=== PATIENT | male | born 1990 | race Caucasian/White ===

== ENCOUNTER 2024-05-02 06:47 | Observation (INO) | payer BC ==
[2024-05-02] MEDS ORDERED: Ondansetron PF 4 MG/2 ML Vial ONE (07:50)
[2024-05-02] MEDS ORDERED: Morphine 4 MG/ML VIAL ONE (07:50)
[2024-05-02] MEDS ORDERED: cefTRIAXone (ROCEPHIN) 2 GM VIAL ONE (07:50)
[2024-05-02] MEDS ORDERED: Sodium Chloride 0.9% 100 ML ONE (07:50)
[2024-05-02] MEDS ORDERED: Lidocaine 1% w/Epinephrine 1:100K 20 ML VIAL ONE (07:50)
[2024-05-02 08:08] LABS: #Basophils 0.06 10x3/uL (0.0-0.2); %Basophils 0.7 % (0.0-1.0); %Eosinophils 1.6 % (0.0-10.0); %Lymphocytes 14.6 % (21.0-51.0); %Monocytes 11.6 % (0.0-10.0); %Neutrophils 71.4 % (42.0-75.0); Hematocrit 45.1 % (42.0-52.0); Hemoglobin 15.2 g/dL (14.0-18.0); Mean Corpuscular HGB CONC 33.7 g/dL (32.0-36.0); Mean Corpuscular Hemoglobin 28.8 pg (27.0-31.0); Mean Corpuscular Volume 85.4 fL (78.0-98.0); Mean Platelet Volume 10.8 fL (7.4-10.4); Platelet Count 265 10x3/uL (130-400); RBC Distribution Width 12.6 % (11.5-14.5); Red Blood Cell (RBC) Count 5.28 mill/uL (4.70-6.10)
[2024-05-02 08:28] LABS: ALT (SGPT) 43 U/L (8-55); AST (SGOT) 32 U/L (5-34); Albumin 4.2 g/dL (3.5-5.0); Alkaline Phosphatase 68 U/L (40-110); Anion Gap 14 mmol/L (10-20); BUN (Urea Nitrogen) 9 mg/dL (8.9-20.6); Bilirubin, Total 0.4 mg/dL (0.2-1.2); Calc. Creatinine Clearance 0 mL/min (70-130); Calcium 9.5 mg/dL (7.8-10.44); Carbon Dioxide 20 mmol/L (22-29); Chloride 104 mmol/L (98-107); Estimated GFR 112; Globulin 3.6 g/dL (2.4-3.5); Glucose 106 mg/dL (70-105); Magnesium 1.8 mg/dL (1.6-2.6); Potassium 3.7 mmol/L (3.5-5.1); Protein, Total 7.8 g/dL (6.0-8.3); Sodium 134 mmol/L (136-145)
[2024-05-02 08:55] LABS: Influenza A by NAA Not Detected (NotDetected); Influenza B by NAA Not Detected (NotDetected); SARS-CoV-2 NAA Rapid Test Not Detected (NotDetected)
[2024-05-02 09:32] LABS: CSF, Glucose 53 mg/dl (40-70); CSF, Protein 94.2 mg/dL (15-40)
[2024-05-02 09:38] LABS: Color Of CSF Supernatant COLORLESS (Colorless); Unspun CSF Color COLORLESS (Colorless)
[2024-05-02 09:39] LABS: Tube # 2
[2024-05-02] MEDS ORDERED: Dexamethasone 10 MG/ML VIAL ONE (09:49)
[2024-05-02] MEDS ORDERED: diphenhydrAMINE 50 MG/ML VIAL ONE (09:50)
[2024-05-02] MEDS ORDERED: Metoclopramide HCl 10 MG (2 mL) VIAL ONE (09:50)
[2024-05-02] MEDS ORDERED: Ondansetron PF 4 MG/2 ML Vial IVP PRN (11:14)
[2024-05-02] MEDS ORDERED: Ondansetron ODT 4 MG TAB PO PRN (11:14)
[2024-05-02 11:21] LABS: CSF Source CSF; Clarity Clear (Clear); Tube # 1
[2024-05-02 11:22] LABS: CSF Source CSF; Clarity Clear (Clear); Tube # 4
[2024-05-02 11:27] LABS: Cell Count Non Hematic 9 %; Lymphocytes 69 %; Segmented Neutrophils 22 %
[2024-05-02 11:29] LABS: Cell Count Non Hematic 17 %; Eosinophils 1 %; Lymphocytes 75 %; Segmented Neutrophils 7 %
[2024-05-02 11:52] VITALS: BMI 34.3
[2024-05-02] MEDS: Vancomycin (BATCH) 2.5 GM in Premix 1 BAG IVPB SCH (12:12)
[2024-05-02] MEDS: Acyclovir Sodium 800 MG in Sodium Chloride 0.9% 250 ML 250 ML IVPB SCH ×2 (12:12→20:03)
[2024-05-02] MEDS: Lactated Ringer's 1,000 ML IV SCH (12:22)
[2024-05-02] MEDS ORDERED: Acyclovir Sodium 500 mg (10 mL) Vial IVPB SCH (14:00)
[2024-05-02 14:58] LABS: HIV (1/2) Antibody/Antigen NONREACTIVE (NonReactive); HIV 1/2 INDEX 0.05 S/CO (<1.00)
[2024-05-02] MEDS: Ibuprofen 200 MG TAB PO PRN (18:00)
[2024-05-02] MEDS: Acetaminophen 325 MG TAB PO PRN (18:00)
[2024-05-02] MEDS: Famotidine 20 MG TAB PO SCH (20:03)
[2024-05-02] MEDS: Famotidine/PF 20 mg/2ml Vial SLOW IVP SCH (20:07)
[2024-05-03 11:21] LABS: #Basophils Less than 0.03 10x3/uL (0.0-0.2); #Eosinphils Less than 0.03 10x3/uL (0.0-0.7); %Basophils 0.2 % (0.0-1.0); %Lymphocytes 10.5 % (21.0-51.0); %Monocytes 4.8 % (0.0-10.0); Hematocrit 43.9 % (42.0-52.0); Hemoglobin 14.7 g/dL (14.0-18.0); Mean Corpuscular HGB CONC 33.5 g/dL (32.0-36.0); Mean Corpuscular Hemoglobin 29.2 pg (27.0-31.0); Mean Corpuscular Volume 87.1 fL (78.0-98.0); Mean Platelet Volume 10.6 fL (7.4-10.4); Platelet Count 253 10x3/uL (130-400); RBC Distribution Width 12.9 % (11.5-14.5); Red Blood Cell (RBC) Count 5.04 mill/uL (4.70-6.10)
[2024-05-03 11:42] LABS: ALT (SGPT) 32 U/L (8-55); AST (SGOT) 19 U/L (5-34); Albumin 3.7 g/dL (3.5-5.0); Alkaline Phosphatase 58 U/L (40-110); Anion Gap 12 mmol/L (10-20); BUN (Urea Nitrogen) 7 mg/dL (8.9-20.6); Bilirubin, Total 0.3 mg/dL (0.2-1.2); Calc. Creatinine Clearance 206 mL/min (70-130); Calcium 9.3 mg/dL (7.8-10.44); Carbon Dioxide 23 mmol/L (22-29); Chloride 109 mmol/L (98-107); Estimated GFR 118; Globulin 3.2 g/dL (2.4-3.5); Glucose 163 mg/dL (70-105); Protein, Total 6.9 g/dL (6.0-8.3); Sodium 140 mmol/L (136-145)
[2024-05-04 08:19] LABS: #Basophils 0.08 10x3/uL (0.0-0.2); %Eosinophils 1.3 % (0.0-10.0); %Lymphocytes 32.7 % (21.0-51.0); %Monocytes 11.7 % (0.0-10.0); Hemoglobin 13.8 g/dL (14.0-18.0); Mean Corpuscular HGB CONC 33.7 g/dL (32.0-36.0); Mean Corpuscular Hemoglobin 28.6 pg (27.0-31.0); Mean Corpuscular Volume 84.9 fL (78.0-98.0); Mean Platelet Volume 11.2 fL (7.4-10.4); Platelet Count 218 10x3/uL (130-400); Red Blood Cell (RBC) Count 4.83 mill/uL (4.70-6.10)
[2024-05-04 08:33] LABS: Anion Gap 13 mmol/L (10-20); BUN (Urea Nitrogen) 9 mg/dL (8.9-20.6); Calc. Creatinine Clearance 211 mL/min (70-130); Calcium 8.7 mg/dL (7.8-10.44); Carbon Dioxide 23 mmol/L (22-29); Chloride 109 mmol/L (98-107); Estimated GFR 119; Glucose 87 mg/dL (70-105); Potassium 3.5 mmol/L (3.5-5.1); Sodium 141 mmol/L (136-145)
[2024-05-04 09:43] VITALS: BP 145/66; TEMP 98.2
[2024-05-04 10:38] LABS: HSV 1 - DNA, CSF Negative (Negative); HSV 2 - DNA, CSF Negative (Negative)
[2024-05-04 11:06] LABS: Syphilis Antibody Nonreactive (Nonreactive); Syphilis Antibody Index 0.07 S/CO (<1.00 Non-Reactive)
== END 2024-05-04 12:54 | disposition home or self-care (01) ==
LOC: ERS 06:47 → T4-B 11:20
PROVIDERS: ADMIT Student in an Organized Health Care Education/Training Program; ATTEND Hospitalist
DX: A87.9 Viral meningitis, unspecified (principal); B02.9 Zoster without complications; H53.149 Visual discomfort, unspecified; D72.829 Elevated white blood cell count, unspecified; F17.290 Nicotine dependence, other tobacco product, uncomplicated; Z79.899 Other long term (current) drug therapy
CPT/HCPCS: 36415; 62270; 70450; 70553; 71045; 76377; 80048; 80053; 82945; 83605; 83735; 84157; 85025; 85060; 86592; 86780; 87040; 87070; 87205; 87389; 87498; 87529; 87798; 87899; 89051; 93005; 96361; 96365; 96367; 96368; 96375; 96376; G0378; J0133; J0696; J1100; J1200; J2270; J2405; J2765; J3370; J3490; J7050; J7120